=== PATIENT | male | born 1960 | race Two or more races ===

== ENCOUNTER 2020-04-07 07:48 | Outpatient (REF) | payer OTHER, SELFPAY | END 2020-04-07 07:49 | disposition home or self-care (01) | LOC: HO.LAB 07:48 | PROVIDERS: PCP Internal Medicine Sports Medicine; Visit Provider Internal Medicine | DX: Z20.828 Contact with and (suspected) exposure to other viral communicable diseases (principal) | CPT/HCPCS: C9803; U0003 ==

== ENCOUNTER 2020-07-26 09:51 | Outpatient (REF) | payer OTHER, SELFPAY ==
[2020-07-26 12:06] LABS: Vitamin B12 1210 pg/mL (200-900)
== END 2020-07-26 09:52 | disposition home or self-care (01) ==
LOC: HO.LAB 09:51
PROVIDERS: Visit Provider Psychiatry & Neurology Neurology
DX: I67.9 Cerebrovascular disease, unspecified (principal)
CPT/HCPCS: 36415; 82607

== ENCOUNTER 2024-11-25 08:48 | Outpatient (REF) | payer OTHER, SELFPAY ==
--- NOTE | ~2024-11-25 | US_ITS ---
EXAMINATION: US RETROPERITONEAL COMPLETE (RENAL) CLINICAL INFORMATION: Hesitancy micturition. COMPARISON: None available. TECHNIQUE: Real-time imaging of the kidneys and bladder. FINDINGS: RIGHT KIDNEY: 11 x 6 x 6 cm (SAG x AP x TRV). Normal echotexture. Normal renal cortical thickness. No hydronephrosis. No gross solid or cystic lesion detected. LEFT KIDNEY: 12 x 6 x 6 cm (SAG x AP x TRV). Normal echotexture. Normal renal cortical thickness. No hydronephrosis. No gross solid or cystic lesion detected. BLADDER: Fluid-filled. Bilateral ureteral jets are demonstrated. Prevoid bladder volume is 176 mL. Postvoid bladder volume is 5.1 mL. Heterogeneous prostate gland with dystrophic ossifications. Prostate gland measures 4.8 x 3.6 x 3.8 cm. Volume: 34.4 cc. US/US retroperitoneal comp IMPRESSION: 5 cc of residual urine in a post void image. Normal renal ultrasound. Prostate gland volume: 34.4 cc... Electronically signed by: Omar Hopkins MD 11/25/2024 01:54 PM EDT
--- OUTSIDE RECORDS SUMMARY | 2024-11-25 09:06 | XMS_ITS ---
Author Name [facility] Organization Unknown Care Team Organization Name Specialty Phone Email Start Date End Da te [facility] Termed, PROVIDER Primary Care 02/20/202211/13
--- OUTSIDE RECORDS SUMMARY | 2024-11-25 09:06 | XMS_ITS | Clinical Summary ---
Author Organization [facility] Address [address] [place] [address] Phone Care Team Providers Care Pairer Inspector Name Role Phone Romel Brock PA-C Primary Care Provider + Social History Tobacco Use Types Packs/Day Years Used Date Smoking Tobacco: Never Assessed Education Answer Date Recorded Are you interested in more education? Not on lynn e 02/19/2024 Are you concerned about learning? Not on file 02/19/2024 No 02/19/2024 No 02/19/2024 Digital Access Answer Date Recorded No 02/19/2024 No 02/19/2024 Reliable internet access at home? Not on file 02/19/2024 Device with a working camera? Not on file Sex and Gender Information Value Date Recorded Sex Assigned at Not on file Legal Sex Male 3:41 PM EST Gender Identity Not on file Sexual Orientation Not on file Plan of Treatment Health Maintenance Due Date Last Done Comments BLOOD PRESSURE 1961 LIPID PANEL 1961 DEPRESSION SCREENING 1973 SMOKING Hx and SMOKELESS TOB ACCO SCREENING 1974 HEPATITIS C SCREENING 1979 HIV ONE-TIME SCREENING (18-6 5 YEARS) 1979 COLOGUARD 2006 COLONOSCOPY 2006 COLORECTAL CANCER SCREENING 2006 FIT TEST 2006 FOBT 2006 SIGMOIDOSCOPY 2006 VIRTUAL COLONOSCOPY 2006 PNEUMOCOCCAL VACCINES (50+ y ears) (1 of 1 - PCV) 2011 ZOSTER VACCINES (1 of 2) 2011 COVID-19 VACCINE ( - 2023-2 5 season) 2023 Adult Td,Tdap Booster 11/03/2029 11/04/2019 RSV VACCINE (1 - 1-dose 75+ series) 01/05/2036 HEPATITIS A VACCINES Aged Out No long er eligible based on patient's age to complete this topic HIB VACCINES Aged Out No longer eligi ble based on patient's age to complete this topic MENINGOCOCCAL VACCINES (ACWY) Aged Out No longer eligible based on patient's age to complete this topic MENINGOCOCCAL VACCINES (B) Aged Out N o longer eligible based on patient's age to complete this topic Medical Devices Not on file [facility] Care Teams Pairer Inspector Relationship Specialty Start Date End Date Romel Brock PA-C [address] [place] [id number] [email or web address] PCP - General Physician Retail Store Associate 02/18/24 Additional Source Comments The information contained in this document represents components of the legal health record. It is not the complete legal health record.[facility]
== END 2024-11-25 08:49 | disposition home or self-care (01) ==
LOC: HO.UMASIMG 08:48
PROVIDERS: Visit Provider Physician Assistant Medical
DX: R39.11 Hesitancy of micturition (principal)
CPT/HCPCS: 76770

== ENCOUNTER → 2024-11-25 13:00 | Outpatient (BNV) | payer OTHER, SELFPAY | PROVIDERS: Visit Provider Radiology Diagnostic Radiology | DX: R39.11 Hesitancy of micturition (principal) | CPT/HCPCS: 76770 ==

== ENCOUNTER 2024-11-25 14:35 | Outpatient (AMB) | payer OTHER, SELFPAY ==
--- NOTE | 2024-11-25 15:18 | MHC.OFFVIS ---
Intake Visit Reasons: LAST SEEN 2020/ HEAD EYE PRESSURE, KUMAR Allergies No Known Allergies (No Known Allergies*) Allergy (Unverified 12/31/19 19:16) Medication List - Last Reconciled 11/25/24 by Quin Hussein MD aspirin 81 mg PO DAILY hydrochlorothiazide 25 mg PO DAILY lisinopril 20 mg PO DAILY HPI Comments Details: The patient is a 64-year-old male presenting with sleep disturbances and cognitive difficulties. He experiences difficulty in initiating and maintaining sleep due to a restless mind, leading to cognitive decline in attention and comprehension during the daytime. The duration of symptoms extends from the last encounter until now. He reports recurrent migraines characterized by a pressure sensation behind his eyes. He manages his blood pressure with lisinopril and monitors mild elevations. Recent ocular evaluation indicated minor cataracts. He is on several supplements, including B12, which showed elevated levels rendering further supplementation unnecessary. Financial constraints previously led to a temporary lapse in insurance coverage, affecting follow-up diagnostic imaging plans. Stresses from a recent personal life event are noted. The patient awaits evaluation with a sleep study. Hearing deficits were identified, meriting audiological evaluation. 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 - Sleep: Reports insomnia and difficulty maintaining sleep. - Eyes: Reports pressure behind the eyes and migraines. Denies any acute visual disturbances. - Cardiovascular: Denies any chest pain. Reports generally stable blood pressure. - Musculoskeletal: Denies generalized muscle weakness. - Psychiatric: Reports stress and anxiety. - ENT: Reports hearing loss. Physical Exam Neuro Other: Mental Status: Alert and oriented to person, place, and time. Normal attention. Normal spontaneous speech, fluency, and comprehension. Cranial Nerves: CN II: Visual mendoza full to confrontation, visual acuity intact. CN III, IV, : Pupils equal, round, reactive to light and accommodation. Extraocular movements are normal. CN V: Facial sensation is normal. CN VII: Facial movements symmetrical. CN VIII: Hearing intact to bedside conversation is decreased CN IX, X: Palate elevates symmetrically. CN XI: Shoulder shrug and head turn symmetrical. CN XII: Tongue midline without atrophy or fasciculation. Extrapyramidal: Full facial expressions and blinking. No rigidity. Movements are appropriate with no tremor or abnormality. Speech: Normal; no dysarthria or tremor. Assessment & Plan Assessment & Plan (1) MCI (mild cognitive impairment): Comment: MRI brain at [facility] in Nov 2019: mod amount of b/l supra in infratentorial WM FLAIR hyperintensities, not particularly close to ventricles and not on CC CTA brain at [facility] in Dec [place]: MVD, otherwise ok. Code(s): G31.84 - Mild cognitive impairment of uncertain or unknown etiology Category: Medical (2) Cerebral microvascular disease: Code(s): I67.89 - Other cerebrovascular disease Category: Medical (3) Migraine without aura and without status migrainosus, not intractable: Code(s): G43.009 - Migraine without aura, not intractable, without status migrainosus Category: Medical (4) Insomnia: Code(s): G47.00 - Insomnia, unspecified Category: Medical Qualifiers: Insomnia type: psychophysiologic Qualified Code(s): F51.04 - Psychophysiologic insomnia (5) Deafness: Code(s): H91.90 - Unspecified hearing loss, unspecified ear Category: Medical Qualifiers: Laterality: unspecified laterality Qualified Code(s): H91.90 - Unspecified hearing loss, unspecified ear Plan Impression: a: Mild cogntive impiarment, likely multifactorial b: Probably HTN related cerebral microvascular disease of brain c: Psychophysiological insomnia likely due to anxiety Rec: a: Reassurance and education b: Control BP c: Baby aspirin daily d: Trazodone 50mg one at night e: MRI brain w/o Orders: Orders MR head/brain wo con Today G31.84 - Mild cognitive impairment of uncertain or unknown etiology Referrals Audiology Referral H91.90 - Unspecified hearing loss, unspecified ear Medications: New trazodone 50 mg PO BEDTIME PRN 30 tabs 0RF sleep Coding Level of Care Code Est Pt Level 5 (13080) Diagnoses MCI (mild cognitive impairment) G31.84 Cerebral microvascular disease I67.89 Migraine without aura and without status migrainosus, not intractable G43.009 Psychophysiological insomnia F51.04 Insomnia type: psychophysiologic Deafness, unspecified laterality H91.90 Laterality: unspecified laterality
== END 2024-11-25 15:37 | disposition home or self-care (01) ==
LOC: HO.HSM 14:36
PROVIDERS: Visit Provider Psychiatry & Neurology Neurology
DX: G31.84 Mild cognitive impairment of uncertain or unknown etiology (principal); G43.009 Migraine without aura, not intractable, without status migrainosus; F51.04 Psychophysiologic insomnia; H91.90 Unspecified hearing loss, unspecified ear
CPT/HCPCS: 99214

== ENCOUNTER → 2024-12-25 18:47 | Outpatient (BNV) | payer OTHER, SELFPAY | PROVIDERS: Visit Provider Radiology Diagnostic Radiology | DX: G31.89 Other specified degenerative diseases of nervous system (principal); I67.82 Cerebral ischemia | CPT/HCPCS: 70551 ==

== ENCOUNTER 2024-12-25 18:50 | Outpatient (REF) | payer OTHER, SELFPAY ==
--- NOTE | ~2024-12-25 | MR_ITS ---
EXAMINATION: MR BRAIN WITHOUT CONTRAST CLINICAL INFORMATION: Mild cognitive impairment of uncertain/unknown etiology. G31.84 COMPARISON: Correlated to CT dated December 25, 2019. TECHNIQUE: MRI of the brain was obtained using routine sequences without contrast. FINDINGS: No restricted diffusion. No acute intracranial hemorrhage, mass effect, midline shift, hydrocephalus or herniation. Molina-white matter differentiation is normal. No signal abnormality or gross volume loss in the hippocampi. Bilateral, multifocal patchy and punctate subcortical and deep white matter hyperintense T2 FLAIR signal involving centrum semiovale and lawton radiata. Prominence of the extra-axial CSF spaces cerebral sulci and ventricles. Focal asymmetric volume loss in the pulvinar , right thalamus without signal abnormality. Sellar/suprasellar region demonstrated no signal abnormality or gross masses. Craniocervical junction demonstrates normal position of the cerebellar tonsils. Flow-void signal within the main cerebral vessels is normal demonstrated a dolichoectatic right vertebral basilar cistern. There is right anterior inferior cerebellar artery type III. Polypoid mucosal thickening, maxillary sinuses. MR/MR head/brain wo con IMPRESSION: No acute stroke/nonhemorrhagic ischemia. Small vessel occlusive disease. Global cerebral atrophy. Unilateral asymmetric pulvinar, right thalamus. Electronically signed by: Omar Hopikns MD 12/28/2024 07:29 AM EDT
--- OUTSIDE RECORDS SUMMARY | 2024-12-25 18:58 | XMS_ITS | Clinical Summary ---
Author Organization [facility] Address [address] [place] [address] Phone Care Team Providers Care Electronic Test Technician Name Role Phone Romel Brock PA-C Primary [...] 2011 ZOSTER VACCINES (1 of 2) 2011 INFLUENZA VACCINE (#1) 2024 COVID-19 VACCINE (2023-2 5 season) 2024 Adult Td,Tdap Booster 11/03/2029 11/04/2019 RSV VACCINE [...] topic Medical Devices Not on file Insurance [facility] Care Teams Electronic Test Technician Relationship Specialty Start Date End Date Romel Brock PA-C [address] [place] [phone] [email or web address] PCP - General Physician Hob Grinder 02/18/24 Additional Source Comments The information contained in this document represents components of the legal health record. It is not the complete legal health record.[facility]
== END 2024-12-25 18:51 | disposition home or self-care (01) ==
LOC: HO.MRI 18:50
PROVIDERS: Visit Provider Psychiatry & Neurology Neurology
DX: G31.84 Mild cognitive impairment of uncertain or unknown etiology (principal)
CPT/HCPCS: 70551

== ENCOUNTER → 2025-01-07 14:33 | Outpatient (AMB) | payer OTHER, SELFPAY ==
--- NOTE | 2025-01-07 15:30 | MHC.OFFVIS ---
Vital Signs 01/07/25 15:38 BP 175/110 H Blood Pressure Location Rt brachial Intake Visit Reasons: results Allergies No Known Allergies (No Known Allergies*) Allergy (Unverified 12/31/19 19:16) Medication List - Last Reconciled 01/07/25 by Quin Hussein MD aspirin 81 mg PO DAILY hydrochlorothiazide 25 mg PO DAILY lisinopril 20 mg PO DAILY trazodone 50 mg PO BEDTIME PRN HPI Comments Details: 65 years old man with hypertension and mild cognitive impairment. He also complain of difficulty sleeping. 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 Code(s): G31.84 - Mild cognitive impairment of uncertain or unknown etiology Category: Medical (2) Cerebral microvascular disease: Code(s): I67.89 - Other cerebrovascular disease Category: Medical (3) Migraine without aura and without status migrainosus, not intractable: Code(s): G43.009 - Migraine without aura, not intractable, without status migrainosus Category: Medical (4) Insomnia: Code(s): G47.00 - Insomnia, unspecified Category: Medical Qualifiers: Insomnia type: psychophysiologic Qualified Code(s): F51.04 - Psychophysiologic insomnia Plan Impression: 1. Mild cognitive impairment probably from vascular disease 2. 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 Uncontrolled blood pressure Recommendations Baby aspirin daily Blood pressure control. Buy a BP machine, keep an eye on it and consult PCP's office if it is high Lipid management Regular exercise regimen such as walking for a mi or 2 a day Minimize alcohol use Coding Level of Care Code Est Pt Level 5 (69154) Diagnoses MCI (mild cognitive impairment) G31.84 Cerebral microvascular disease I67.89 Migraine without aura and without status migrainosus, not intractable G43.009 Psychophysiological insomnia F51.04 Insomnia type: psychophysiologic
[2025-01-07 15:38] VITALS: BP 175/110
--- OUTSIDE RECORDS SUMMARY | 2025-01-07 18:56 | XMS_ITS | Clinical Summary ---
Author Organization [facility] Address [address] [place] [address] Phone Care Team Providers Care Steel Layer Name Role Phone Rmoel Brock PA-C Primary Care Provider + Social [...] topic Medical Devices Not on file Insurance [facility] Care Teams Steel Layer Relationship Specialty Start Date End Date Romel Brock PA-C [address] [place] [id number] [email or web address] PCP - General Physician Thread Grinder Tool 02/18/24 Additional Source Comments The information contained in this document represents components of the legal health record. It is not the complete legal health record.[facility]
== END ==
LOC: HO.HSM 14:33
PROVIDERS: Visit Provider Psychiatry & Neurology Neurology
DX: I67.89 Other cerebrovascular disease (principal); G43.009 Migraine without aura, not intractable, without status migrainosus; F51.04 Psychophysiologic insomnia; G31.84 Mild cognitive impairment of uncertain or unknown etiology
CPT/HCPCS: 99214

== ENCOUNTER 2025-02-04 14:34 | Outpatient (REF) | payer OTHER, SELFPAY ==
--- OUTSIDE RECORDS SUMMARY | 2025-02-04 18:25 | XMS_ITS | Data Portability ---
Author Organization [facility] [id number] Address [address] [place] [address] Assessment No assessment recorded. Plan of Treatment Reminders Order Date Submit Date Provider Last Modified By Organization Details Last Modified Time Details Appointments None recorded. Lab None recorded. Referral None recorded. Procedures cerumen removal using irrigation (PROC) 2022 023 [email or web address] Not available 3 12:18:39 Surgeries None recorded. Imaging None recorded. Medication Orders None recorded. Patient TargetsNo targets recorded. Patient Instructions Encounter Date Encounter Id Patient Instructions Last Modified By Organization Details Last Modified Time 05/12/2022 [id number] earwax blockage: care instructions [email or web address] Not available 05/12/2022 14:32:32 Reason for Referral None Reported. Problems Name Problem SNOMED Code Status Onset Date Resolution Date Notes Provider Name and Address Organization Details Recorded Time Essential hypertension 70538437 Active 2022 [facility] 3 13:59:10 Problem Notes None recorded. Medical Equipment None Reported. Allergies No known drug allergies Medications Name Sig Start Date Stop Date Status Note LastModified by Organization Details LastModified Time hydrochlorothiazide active Not Availab le Not Available Not Available lisinopril active Not Available Not Av ailable Not Available Vitals Date Recorded Body height Body mass index (BMI) Body weight Body temperature Respiratory rate Heart rate Oxygen saturation Oxygen saturation in Arterial blood by Pulse oximetry Systolic And Diastolic Provider Name and Address Organization Details Last Updated DateTime 3 170.18 cm 28.2 kg/m2 16883.6 3 g 98.2 [degF] 18 /min 64 /min 100 % 100 % 139/85 mm[Hg] ARI Granados PA - [facility] 14:00:55 Social History Question Answer Notes LastModified by Organizat ion Details LastModified Time Tobacco Smoking Status Former Smoker ARI villanueva PA - [facility] 05/12/2022 13:59:31 What Is Your Water Source? City Information not available 05/12/2022 What Is Your Heat Source? Gas Information not available 05/12/2022 Have You Had Direct Contact, Or Contact During Intimacy, With Monkeypox Rash, Scabs, Or Body Fluids From A Person With Monkeypox? No Information not available 05/12/2022 Have You Recently Traveled Abroad? No Information not available 05/12/2022 Sex: Unknown Functional Status Question Answer Note LastModified by Organizat ion Details LastModified Time Do you use any illicit or recreational drugs? No Information not available 05/12/2022 Do you or have you ever used any other forms of tobacco or nicotine? No Information not available 05/12/2022 What is your level of alcohol consumption? None Information not available 05/12/2022 Mental Status None recorded. Family History Relationship Description Onset Age of this Age Resolved Age Notes LastModified by Organization Details LastModified Time Father No current problems or disability Not available 13:59:20 Mother No current problems or disability Not available 13:59:20 Medical History No medical history recorded. Past Encounters Encounter ID Performer Location Encounter Start Date Encounter Closed Date Diagnosis/Indication Diagnosis SNOMED-CT Code Diagnosis ICD10 Code Diagnosis IMO Codes Diagnosis Note [id number] [facility] [address] [address] 08/23/2019 12:04:15 08/23/2019 12:31:34 [id number] Pola Springer DO _[facility] [address] [place] [address] 05/12/2022 13:08:36 05/12/2022 14:41:21 Impacted cerumen in left ear [id number] 425746 H61.22 Pt tolerated BL ear lavage wellEar canals inspected and clear post procedureT Ms wnl Patient advised to follow up as needed for worsening symptoms or no improvemen t. Health Concerns Section Related Observation LastModified by Organization Detai ls LastModified Time None Recorded Concern Status LastModified by Organization Details LastModified Time None Recorded Advance Directives Directive None Recorded Payers Insurance Date Sequence Insurance Name Policy Number Policy Lacey Covered Member ID Lacey Member ID Guarantor Name 05/12/2022 PROMPT PAY Ed Putnam 05/12/2022 1 [facility] (O) [id number] Rasta Putnam [id number] Rasta Putnam Notes Date Note Type Note Provider Name and Address Organization Details Recorded Time 05/12/2022 text/html ROS as noted in the HPI 62 yo malec/o L ear pain x 2 weeksfeels blockedhearing diminishedno f/c/n/vno HAno dizzinessno traumano rash Pola Springer, DO [address] [place], [address], [place] PA - [facility] 05/12/2022 14:39:48
--- OUTSIDE RECORDS SUMMARY | 2025-02-04 18:25 | XMS_ITS | Clinical Summary ---
Author Organization [facility] Address [address] [place] [address] Phone Care Team Providers Care Refrigeration Unit Repairer Name Role Phone Romel Brock PA-C Primary [...] 2011 INFLUENZA VACCINE (#1) 2024 COVID-19 VACCINE ( - 2024-2 6 season) 2024 Adult Td,Tdap Booster 11/03/2029 11/04/2019 [...] topic Medical Devices Not on file Insurance [facility] Care Teams Refrigeration Unit Repairer Relationship Specialty Start Date End Date Romel Brock PA-C [address] [place] [phone] [email or web address] PCP - General Physician Electric Refrigerator Preparer 02/18/24 Additional Source Comments The information contained in this document represents components of the legal health record. It is not the complete legal health record.[facility]
== END 2025-02-04 14:35 | disposition home or self-care (01) ==
LOC: HO.SH 14:34
PROVIDERS: Visit Provider Psychiatry & Neurology Neurology
DX: Z01.118 Encounter for examination of ears and hearing with other abnormal findings (principal); H90.3 Sensorineural hearing loss, bilateral
CPT/HCPCS: 92557